=== PATIENT | female | born 1935 | race Caucasian/White ===

== ENCOUNTER 2017-06-16 06:52 | Day surgery (SDC) | payer MEDICARE, OTHER ==
[~2017-06-16] VITALS: Ht 160 cm; Wt 85.5 kg
[~2017-06-16 06:52] MED LIST: CEPH500 PO; FISH OIL 1,0001 EAC1 PO; HYDR1TAB94 PO; MECL25 PO; POLY500
== END 2017-06-16 09:06 | disposition home or self-care (01) ==
LOC: ORSCSDS 06:52
PROVIDERS: Ophthalmology
PROC: 08RJ3JZ Replacement of Right Lens with Synthetic Substitute, Percutaneous Approach (ICD-10-PCS; principal; 2017-06-16 08:30)
DX: H25.11 Age-related nuclear cataract, right eye (principal)
CPT/HCPCS: J2250; J3301; J7040; V2632

== ENCOUNTER 2017-07-07 06:26 | Day surgery (SDC) | payer MEDICARE, OTHER ==
[~2017-07-07] VITALS: Ht 162.6 cm; Wt 84.9 kg
== END 2017-07-07 08:28 | disposition home or self-care (01) ==
LOC: ORSCSDS 06:26
PROVIDERS: Ophthalmology
PROC: 08RK3JZ Replacement of Left Lens with Synthetic Substitute, Percutaneous Approach (ICD-10-PCS; principal; 2017-07-07 08:00)
DX: H25.12 Age-related nuclear cataract, left eye (principal); I10 Essential (primary) hypertension; E78.5 Hyperlipidemia, unspecified; E66.9 Obesity, unspecified; Z68.32 Body mass index [BMI] 32.0-32.9, adult
CPT/HCPCS: J2250; J3010; J3301; J7040; V2632

== ENCOUNTER 2021-10-06 10:53 | Day surgery (SDC) | payer MEDICARE, OTHER ==
[~2021-10-06] VITALS: Ht 162.6 cm; Wt 89.3 kg
[2021-10-06] MEDS ORDERED: PSYSENPA (11:26)
== END 2021-10-06 13:18 | disposition home or self-care (01) ==
LOC: ORSCSDS 10:53
PROVIDERS: Internal Medicine Gastroenterology
PROC: 0DBN8ZX Excision of Sigmoid Colon, Via Natural or Artificial Opening Endoscopic, Diagnostic (ICD-10-PCS; principal; 2021-10-06 12:15)
DX: Z12.11 Encounter for screening for malignant neoplasm of colon (principal); D12.5 Benign neoplasm of sigmoid colon; K57.30 Diverticulosis of large intestine without perforation or abscess without bleeding; Z86.010 Personal history of colon polyps; I48.91 Unspecified atrial fibrillation
CPT/HCPCS: 88305; J2405; J2704; J7120

== ENCOUNTER → 2021-12-03 | Outpatient (CLI) | payer MEDICARE, OTHER ==
[~2021-12-03] MED LIST changes: +PSYSENPA
[2021-12-03 18:36] LABS: BASOPHILS ABSOLUTE AUTO 0.06 K/mm3 (0.00-0.23); BASOPHILS PERCENT AUTO 1 % (0-2); EOSINOPHILS ABSOLUTE AUTO 0.22 K/mm3 (0.00-0.68); EOSINOPHILS PERCENT AUTO 3 % (0-6); Hematocrit 45.1 % (33.0-51.0); Hemoglobin 14.5 g/dL (11.5-16.0); IMMATURE GRAN ABSOLUTE AUTO 0.02 K/mm3 (0.00-0.10); IMMATURE GRAN PERCENT AUTO 0 % (0-1); LYMPHOCYTES ABSOLUTE AUTO 2.38 K/mm3 (0.84-5.20); LYMPHOCYTES PERCENT AUTO 31 % (21-46); MONOCYTES ABSOLUTE AUTO 0.87 K/mm3 (0.16-1.47); MONOCYTES PERCENT AUTO 11 % (4-13); Mean Corpuscular HGB 30.1 pg (26.0-34.0); Mean Corpuscular HGB Conc 32.2 g/dL (31.5-36.5); Mean Corpuscular Volume 94 fL (80-100); Mean Platelet Volume 10.3 fL (9.1-12.4); NEUTROPHILS ABSOLUTE AUTO 4.26 K/mm3 (1.96-9.15); NEUTROPHILS PERCENT AUTO 55 % (41-73); Platelet Count 224 K/mm3 (150-400); RDW Coefficient Variation 13.2 % (11.7-14.2); RDW Standard Deviation 45.2 fL (35.1-46.3); Red Blood Cell Count 4.82 M/mm3 (3.80-5.20); White Blood Cell Count 7.81 K/mm3 (4.00-11.30)
[2021-12-03 18:47] LABS: Albumin, Blood 3.7 g/dL (3.4-5.0); Bilirubin, Total 0.4 mg/dL (0.1-1.0); Bun/Creatinine Ratio 11.7 (12.0-20.0); Calcium, Blood 9.3 mg/dL (8.5-10.1); Creatinine, Blood 0.94 mg/dL (0.40-1.00); Globulin, Blood 3.8 g/dL (2.2-4.0); Potassium, Blood 4.4 mmol/L (3.5-5.5); Total Protein, Blood 7.5 g/dL (6.4-8.2)
== END ==
LOC: LAB 18:31 → LAB SHORT 18:31
PROVIDERS: Physician Assistant
DX: R07.9 Chest pain, unspecified (principal); R10.9 Unspecified abdominal pain
CPT/HCPCS: 80053; 82150; 84484; 85025

== ENCOUNTER → 2023-03-03 | Outpatient (CLI) | payer MEDICARE, OTHER | LOC: LAB SHORT 11:58 → LAB 11:58 | DX: C44.311 Basal cell carcinoma of skin of nose (principal) | CPT/HCPCS: 88305 ==